=== PATIENT | male | born 1975 | race Caucasian/White ===

== ENCOUNTER → 2021-08-17 | Day surgery (SDC) | payer OTHER ==
[~2021-08-17] VITALS: Ht 180.3 cm; Wt 95.2 kg
[~2021-08-17] MED LIST: BUSPIRONE HCL10 MG PO; CETIRIZINE HCL10 MG PO; CLEOCIN HCL150 MG PO; DESYREL50 MG PO; MELATONIN5 M2 PO; MOTRIN600 MG PO; PRAZOSIN HCL2 MG PO; PREDNISONE10 MG PO
[2021-08-17 08:47] LABS: BASOPHIL 1.4 % (0-2); EOSINOPHIL 3.6 % (0-5); HCT 41.5 % (42.0-52.0); HGB 13.2 g/dl (13.2-18.0); LYMPHOCYTE 24.3 % (15-48); MCH 29.7 pg (25.0-31.0); MCHC 31.8 g/dL (32.0-36.0); MCV 93.3 fL (78.0-100.0); MONOCYTE 9.5 % (0-12); MPV 11.2 fL (6.0-9.5); NRBC 0; PLT 176 K/uL (150-400); RBC 4.45 M/uL (4.70-6.00); WBC 4.9 K/uL (4.0-10.5)
[2021-08-17 09:07] LABS: ALBUMIN 3.6 g/dL (3.4-5.0); BILIRUBIN - TOTAL 0.2 mg/dL (0.2-1.0); BUN/CREAT RATIO (CALC) 37.2 RATIO; CREATININE 0.78 mg/dL (0.67-1.17); POTASSIUM 4.4 mmol/L (3.5-5.1); TOTAL PROTEIN 6.6 g/dL (6.4-8.2)
[2021-08-17 09:30] LABS: INR 1.05 (0.9-1.2); PROTHROMBIN TIME 13.1 SECONDS (11.8-13.4)
[2021-08-17 09:31] LABS: PTT 27.5 SECONDS (24.4-34.7)
== END | disposition home or self-care (01) ==
LOC: FAS 08:07
PROVIDERS: Oral & Maxillofacial Surgery
DX: K04.7 Periapical abscess without sinus (principal); K02.9 Dental caries, unspecified; Z79.899 Other long term (current) drug therapy; Z88.0 Allergy status to penicillin; Z20.822 Contact with and (suspected) exposure to COVID-19
CPT/HCPCS: D7140; D7210; 36415; 71045; 80053; 85025; 85610; 85730; 93005; J1100; J1885; J2001; J2250; J2405; J2704; J7120